=== PATIENT | female | born 1990 | race Caucasian/White ===

== ENCOUNTER 2019-08-04 15:55 | Emergency (ER) | payer BC ==
--- NOTE | 2019-08-04 16:20 | ED Physician Documentation ---
PD HPI CHEST PAIN - Stated complaint Stated Complaint: FAST HR - Chief complaint Chief Complaint: Cardiac - History obtained from History obtained from: Patient (28-year-old woman without significant past medical history presents with palpitations. She was in her usual state of health although very mildly hung over potentially although she did not feel it this morning but was drinking last night. She had a cup of coffee which is not out of the ordinary for her and then started to feel vibrations in her chest and felt like her heart rate was very fast and skipping beats. Her Apple Watch measured a heart rate of 200 very briefly, but less than a minute. She still feels vibrations in her chest but her heart rate is back to normal. Of note she has had vibrations in her chest before, usually after drinking wine, she saw her doctor who felt that it was likely GI related, not cardiac.) Review of Systems Constitutional: denies: Fever, Chills Cardiac: reports: Palpitations. denies: Chest pain / pressure, Pedal edema, Calf pain Respiratory: denies: Dyspnea, Cough GI: denies: Abdominal Pain PD PAST MEDICAL HISTORY - Allergies Allergies/Adverse Reactions: Allergies Allergy/AdvReac Type Severity Reaction Status Date / Time No Known Drug Allergies Allergy Verified 08/04/19 16:01 PD ED PE NORMAL - Vitals Vital signs reviewed: Yes - General General: Alert and oriented X 3, No acute distress - HEENT HEENT: PERRL, EOMI - Neck Neck: Supple, no meningeal sign, No bony TTP - Cardiac Cardiac: RRR, No murmur - Respiratory Respiratory: No respiratory distress, Clear bilaterally - Abdomen Abdomen: Non tender - Neuro Neuro: Alert and oriented X 3, Normal speech Results - Vitals Vitals: Vital Signs - 24 hr 08/04/19 08/04/19 16:01 16:24 Temperature 36.6 C Heart Rate 72 93 Respiratory 15 19 Rate Blood Pressure 131/94 H 118/70 O2 Saturation 99 100 Oxygen O2 Source Room air - EKG (time done) 1628 Rate: Rate (enter#) (81) Rhythm: NSR (With sinus arrhythmia) Raymond: Normal Intervals: Normal [place] QRS: Normal Ischemia: Normal ST segments Computer interpretation: Agree with computer - Labs Labs: Laboratory Tests 08/04/19 08/04/19 08/04/19 16:27 16:27 16:27 WBC 8.3 RBC 4.45 Hgb 13.5 Hct 40.9 MCV 91.9 MCH 30.3 MCHC 33.0 RDW 12.1 Plt Count 199 MPV 9.5 Neut # (Auto) 6.8 H Lymph # (Auto) 1.1 L [place] # (Auto) 0.4 Eos # (Auto) 0.0 Baso # (Auto) 0.0 Absolute Nucleated RBC 0.00 Nucleated RBC % 0.0 Sodium 133 L Potassium 3.5 Chloride 97 L Carbon Dioxide 25 Anion Gap 11.0 BUN 18 Creatinine 0.8 Estimated GFR (MDRD) 84 L Glucose 107 H Calcium 9.1 Total Bilirubin 0.9 AST 25 ALT 18 Alkaline Phosphatase 55 Total Protein 8.0 Albumin 4.7 Globulin 3.3 Albumin/Globulin Ratio 1.4 Lipase 29 TSH 1.76 PD MEDICAL DECISION MAKING - ED course ED course: 28-year-old woman with sensation of fast heart rate also corroborated on her iPhone watch prior to arrival. If the rate of 200 was correct, likely an SVT. No ectopy while in the department. Departure - Departure Clinical Impression: Palpitations Condition: Good Record reviewed to determine appropriate education?: Yes Instructions: ED Tachycardia Pat PSVT Comments: If your heart rate truly was 200 is your apple watch suggests, really the only thing that causes that is what is called a supraventricular tachycardia. This is generally a benign phenomenon, but does deserve further evaluation. Talk with your doctor about potentially a Holter monitor or cardiology referral. Return for new or worsening symptoms.
[2019-08-04 16:33] LABS: BASOPHILS % (AUTO) 0.4 %; EOSINOPHILS % (AUTO) 0.1 %; HGB - HEMOGLOBIN 13.5 g/dL (12.0-16.0); LYMPHOCYTES # (AUTO) 1.1 10^3/uL (1.5-3.5); MEAN CORPUSCULAR HEMOGLOBIN 30.3 pg (27.0-31.0); MEAN CORPUSCULAR VOLUME 91.9 fL (81.0-99.0); MEAN PLATELET VOLUME 9.5 fL (7.9-10.8); MONOCYTES # (AUTO) 0.4 10^3/uL (0.0-1.0); MONOCYTES % (AUTO) 4.2 %; NEUTROPHILS # (AUTO) 6.8 10^3/uL (1.5-6.6); NEUTROPHILS % (AUTO) 82.1 %; PLT - PLATELET COUNT 199 10^3/uL (130-450); RED BLOOD COUNT 4.45 10^6/uL (4.20-5.40); RED CELL DISTRIBUTION WIDTH 12.1 % (12.0-15.0); WHITE BLOOD COUNT 8.3 x10^3/uL (4.8-10.8)
[2019-08-04 16:46] LABS: ALBUMIN 4.7 g/dL (3.2-5.5); ALBUMIN/GLOBULIN RATIO 1.4 (1.0-2.2); BILIRUBIN,TOTAL 0.9 mg/dL (0.2-1.0); CALCIUM 9.1 mg/dL (8.5-10.3); CREATININE 0.8 mg/dL (0.4-1.0)
[2019-08-04 17:07] LABS: BILIRUBIN,URINE NEGATIVE (NEGATIVE); CLARITY,URINE CLEAR (CLEAR); GLUCOSE, URINE (UA) NEGATIVE (NEGATIVE); KETONES,URINE (UA) NEGATIVE (NEGATIVE); LEUKOCYTE ESTERASE, URINE NEGATIVE (NEGATIVE); NITRITE,URINE NEGATIVE (NEGATIVE); OCCULT BLOOD,URINE TRACE-INTA (NEGATIVE); PROTEIN,URINE NEGATIVE (NEGATIVE); UROBILINOGEN,URINE 0.2 (NORMAL) E.U./dL (NORMAL)
[2019-08-04 17:08] LABS: HCG UR QUAL NEGATIVE
[2019-08-04 17:11] VITALS: BP 104/71
== END 2019-08-04 17:34 | disposition home or self-care (01) ==
LOC: ED 15:55
DX: R00.2 Palpitations (principal)
CPT/HCPCS: 36415; 80053; 81001; 81003; 81025; 83690; 84443; 85025; 87086; 93005; 99284